=== PATIENT | female | born 1935 | race Caucasian/White ===

== ENCOUNTER 2016-09-26 10:58 | Outpatient (CLI) | payer MEDICARE | END 2016-09-26 10:59 | disposition home or self-care (01) | LOC: LAB.F 10:58 | PROVIDERS: ATTEND Family Medicine | DX: I48.91 Unspecified atrial fibrillation (principal) | CPT/HCPCS: 85610 ==

== ENCOUNTER 2016-10-13 07:51 | Outpatient (CLI) | payer MEDICARE | END 2016-10-13 07:52 | disposition critical access hospital (66) | LOC: EMS 07:51 | PROVIDERS: ATTEND Surgery | DX: S81.812A Laceration without foreign body, left lower leg, initial encounter (principal) | CPT/HCPCS: A0425; A0429 ==

== ENCOUNTER 2016-10-13 08:33 | Emergency (ER) | payer MEDICARE ==
[2016-10-13] MEDS ORDERED: CLINDAMYCIN 900 MG/50 ML 50 ML IV ONE ×2 (08:54→09:16)
--- NOTE | 2016-10-13 08:59 | ED Physician Documentation ---
PD HPI LOWER EXT INJURY - Stated complaint Stated Complaint: LEG INFECTION - Chief complaint Chief Complaint: Wound - History obtained from History obtained from: Patient - History of Present Illness PD HPI LOW EXT INJURY LOCATION: Left, Lower leg Type of injury: Other (Dog scratch.) Where injury occurred: Home Timing - onset: How many days ago (3) Associated symptoms: Discolored Contributing factors: Anticoagulated Similar symptoms before: Has not had sx before - Additional information Additional information: The patient is a 80-year-old female who presents with redness and tenderness at wound site of her left lower leg. 3 days ago she was teaching her daughter's dog to jump onto her lap when the dog's paw tore the skin on her lower leg. She denies any other injuries. She denies fever. Past medical history is significant for atrial fibrillation, for which she is on warfarin. Review of Systems Constitutional: denies: Fever Nose: denies: Congestion Throat: denies: Sore throat Cardiac: denies: Chest pain / pressure Respiratory: denies: Dyspnea, Cough GI: denies: Abdominal Pain, Nausea, Vomiting : denies: Dysuria Skin: reports: Other (Skin tear, left lower leg) Musculoskeletal: reports: Extremity swelling Neurologic: denies: Focal weakness, Numbness, Headache PD PAST MEDICAL HISTORY - Past Medical History Past Medical History: Yes Cardiovascular: Hypertension, Atrial fibrillation Respiratory: None Neuro: None Endocrine/Autoimmune: HyPOthyroidism GI: Other WRESTLING COACH: None : Incontinence HEENT: None Psych: None Musculoskeletal: Osteoarthritis Derm: None Other Past Medical History: History of MRSA - Past Surgical History Past Surgical History: Yes General: Cholecystectomy Ortho: Hip replacement - Present Medications Home Medications: Ambulatory Orders Medication Instructions Recorded Confirmed Acyclovir 400 mg PO BID 08/14/15 10/13/16 Levothyroxine [Synthroid] 50 mcg PO DAILY 08/14/15 10/13/16 Lisinopril 2.5 mg PO DAILY 08/14/15 10/13/16 Metoprolol Tartrate 100 mg PO BID 08/14/15 10/13/16 Omeprazole 10 mg PO DAILY 08/14/15 10/13/16 Warfarin Sodium [Coumadin] 7.5 mg PO DAILY 08/14/15 10/13/16 Clindamycin [Cleocin] 300 mg PO Q6H 7 Days 10/13/16 Saccharomyces Boulardii [Florastor] 250 mg PO DAILY #10 capsule 10/13/16 diltiaZEM [Cardizem] 30 mg PO ONCE 10/13/16 10/13/16 - Allergies Allergies/Adverse Reactions: Allergies Allergy/AdvReac Type Severity Reaction Status Date / Time Sulfa (Sulfonamide AdvReac Unknown Verified 08/14/15 02:04 Antibiotics) - Living Situation Living Arrangement: reports: At home - Social History Does the pt smoke?: No Smoking Status: Never smoker Does the pt drink ETOH?: Yes Does the pt have substance abuse?: No - Immunizations Immunizations are current?: Yes PD ED PE NORMAL - Vitals Vital signs reviewed: Yes (Systolic hypertension.) - General General: Alert and oriented X 3, Other (Morbidly obese.) - HEENT HEENT: Atraumatic, EOMI, Pharynx benign - Neck Neck: No bony TTP, No JVD - Cardiac Cardiac: RRR, No murmur - Respiratory Respiratory: No respiratory distress, Clear bilaterally - Abdomen Abdomen: Soft, Non tender - Back Back: No CVA TTP - Derm Derm: No rash - Extremities Extremities: No calf tenderness / cord, Other (There are 3 superficial skin tears of the pretibial region of the left lower leg. There is surrounding erythema and slight warmth to palpation. There is no lymphangitic streaking.) - Neuro Neuro: Alert and oriented X 3, No motor deficit, No sensory deficit Results - Vitals Vitals: Oxygen O2 Source Room air - Labs Labs: Laboratory Tests 10/13/16 09:00 PT 36.3 H INR 3.2 H PD MEDICAL DECISION MAKING - ED course Complexity details: reviewed results, re-evaluated patient, considered differential, d/w patient ED course: The patient's presentation is significant for wound infection of the left lower leg caused by dog scratch, with associated superficial skin tears. Treatment in the emergency department included administration of clindamycin 900 mg IV. The wound was cleaned and antibiotic ointment and nonadhesive dressing applied. She is being discharged with a prescription for clindamycin and probiotic. I discussed with her the expected course of healing, the importance of outpatient follow-up, as well as potentially worrisome signs or symptoms that should prompt reevaluation in the emergency department. The patient expressed her desire to be admitted to the hospital, but, with appropriate oral antibiotics, outpatient therapy is clinically appropriate. Departure - Departure Disposition: 01 Home, Self Care Clinical Impression: Dog scratch, Wound infection, History of MRSA infection Condition: Stable Instructions: ED Bite Dog Follow-Up: [facility] [Provider Group] Prescriptions: Clindamycin [Cleocin] 300 mg PO Q6H 7 Days Saccharomyces Boulardii [Florastor] 250 mg PO DAILY #10 capsule Comments: Keep your left leg elevated as much of the time as possible. Take clindamycin 4 times daily as prescribed. Take probiotic daily as prescribed. Clean the wound daily and apply a new antibiotic ointment. Follow-up with primary physician within 1 week. Call to schedule an appointment. Return to the emergency department if you develop increasing redness, swelling, pain, or otherwise worsening symptoms. Discharge Date/Time: 10/13/16 11:36
[2016-10-13] MEDS ORDERED: SODIUM CHLORIDE FLUSH 0.9% 10 ML SYRINGE IVP ONE (09:17)
[2016-10-13 09:30] LABS: INR 3.2 (0.8-1.2); PT - PROTHROMBIN TIME 36.3 secs (9.9-12.6)
[2016-10-13] MEDS ORDERED: CLINDAMYCIN 150 MG CAPSULE PO STA (11:09)
[2016-10-13] MEDS ORDERED: CLINDAMYCIN 150 MG CAPSULE PO ONE (11:19)
[2016-10-13 11:36] VITALS: BP 183/80
--- NOTE | 2016-10-17 05:17 | ED Physician Documentation ---
ED Addendum - Addendum Addendum: 10/17/16 05:16 Chart accessed for culture review. Culture grows out two organisms: staph aureus and enterobacter. They are both sensitive to bactrim, but chart indicates sulfa allergy. Will add cipro to cover enterobacter, continue clindamycin
== END 2016-10-13 11:36 | disposition home or self-care (01) ==
LOC: EDUNIT# → ED 08:33
DX: S81.812A Laceration without foreign body, left lower leg, initial encounter (principal); L08.9 Local infection of the skin and subcutaneous tissue, unspecified; W54.8XXA Other contact with dog, initial encounter; Y93.89 Activity, other specified; Y92.009 Unspecified place in unspecified non-institutional (private) residence as the place of occurrence of the external cause; I10 Essential (primary) hypertension; E03.9 Hypothyroidism, unspecified; Z86.14 Personal history of Methicillin resistant Staphylococcus aureus infection; Z96.649 Presence of unspecified artificial hip joint
CPT/HCPCS: 36415; 85610; 87070; 87077; 87181; 87205; 96365; 99283; 99284; A9270; 96375

== ENCOUNTER 2017-08-09 10:20 | Outpatient (CLI) | payer MEDICARE ==
[2017-08-09 17:43] LABS: INR 2.1 (0.8-1.2); PT - PROTHROMBIN TIME 23.5 secs (9.9-12.6)
== END 2017-08-09 10:21 | disposition home or self-care (01) ==
LOC: LAB.F 10:20
PROVIDERS: ATTEND Family Medicine
DX: I48.91 Unspecified atrial fibrillation (principal)
CPT/HCPCS: 36415; 85610

== ENCOUNTER 2017-09-28 12:58 | Outpatient (CLI) | payer MEDICARE | END 2017-09-28 12:59 | disposition home or self-care (01) | LOC: LAB.F 12:58 | PROVIDERS: ATTEND Pharmacist | DX: I48.91 Unspecified atrial fibrillation (principal) | CPT/HCPCS: 85610 ==

== ENCOUNTER 2017-10-04 14:22 | Outpatient (CLI) | payer MEDICARE | END 2017-10-04 14:23 | disposition home or self-care (01) | LOC: LAB.F 14:22 | PROVIDERS: ATTEND Pharmacist | DX: I48.91 Unspecified atrial fibrillation (principal) | CPT/HCPCS: 85610 ==

== ENCOUNTER 2017-10-12 14:09 | Outpatient (CLI) | payer MEDICARE | END 2017-10-12 14:10 | disposition home or self-care (01) | LOC: LAB.F 14:09 | PROVIDERS: ATTEND Pharmacist | DX: I48.91 Unspecified atrial fibrillation (principal) | CPT/HCPCS: 85610 ==

== ENCOUNTER 2017-10-22 14:06 | Outpatient (CLI) | payer MEDICARE | END 2017-10-22 14:07 | disposition home or self-care (01) | LOC: LAB.F 14:06 | PROVIDERS: ATTEND Pharmacist | DX: I48.91 Unspecified atrial fibrillation (principal) | CPT/HCPCS: 85610 ==

== ENCOUNTER 2017-11-02 15:04 | Outpatient (CLI) | payer MEDICARE | END 2017-11-02 15:05 | disposition home or self-care (01) | LOC: LAB.F 15:04 | PROVIDERS: ATTEND Pharmacist | DX: I48.91 Unspecified atrial fibrillation (principal) | CPT/HCPCS: 85610 ==